=== PATIENT | male | born 1950 | race Caucasian/White ===

== ENCOUNTER 2022-04-28 08:28 | Day surgery (SDC) | payer OTHER, SELFPAY ==
[2022-04-28 08:45] VITALS: BP 133/83; PULSE 51; RESP 20; TEMP 36.3; O2SAT 99
[2022-04-28] MEDS: Tropicam./Phenyleph. (1/2.5%) 5 ML BTL OS ×3 (09:08→09:18)
[2022-04-28 09:14] VITALS: BMI 23.8
--- NOTE | 2022-04-28 09:14 | ANES.PREOP_ITS ---
General Info Date of Service Date Performed: 04/28/22 Height: 5 ft 8 in Weight: 71.3 kg Body Mass Index (BMI): 23.8 Surgical Procedure: Operation Date: 04/28/22 11:40 Proposed Procedure Side Surgeon p Cataract Extraction with IOL Implant Left Jalen Salcido MD Meds Allergies and Home Medications Allergies Allergy/AdvReac Type Severity Reaction Status Date / Time No Known Allergies Allergy Unverified 04/28/22 09:00 Home Medication Medication Instructions Recorded brimonidine 0.2 %-timolol 0.5 % 1 drp BID 04/25/22 eye drops (Combigan) latanoprost 0.005 % eye drops 1 drp ophthalmic (eye) DAILY 04/25/22 lisinopril 10 mg tablet 1 tab PO DAILY 04/25/22 multivitamin 1 tab PO DAILY 04/25/22 simvastatin 20 mg tablet 1 tab PO HS 04/25/22 tamsulosin 0.4 mg capsule 1 cap PO DAILY 04/25/22 terazosin 2 mg capsule 1 cap PO HS 04/25/22 Current Visit Medications: Current Medications Generic Name Dose Route Start Last Admin Trade Name Freq PRN Reason Stop Dose Admin Acetaminophen 1,000 mg 04/28/22 06:00 Acetaminophen 500 Mg Tab PO Q4H PRN PRN Miscellaneous Medication 0 ml 04/28/22 06:00 Prednisolone 1%, Moxifloxacin 0.5%, Nepafenac 0.1% 5ml Btl OS DIRECTED [facility] Miscellaneous Medication 0 ml 04/28/22 06:00 Tropicam./Phenyleph. (1/2.5%) 5 Ml Btl OS DIRECTED GLENNY Tetracaine HCl 0 ml 04/28/22 06:00 Tetracaine 0.5% 4 Ml Btl OS DIRECTED [facility] PFSH Active Problems Active Problems: Problem Status Onset Code Cortical cataract of left eye H26.9 Nuclear sclerotic cataract of left eye H25.12 Medical History Medical History Blind right eye History of colon polyps History of hypertension History of prediabetes History of renal stone Hx of endogenous hypertriglyceridemia Hx of hyperlipidemia Hx of open-angle glaucoma bilateral Smoking hx Surgical History Surgical History History of glaucoma tube shunt procedure Hx of umbilical hernia repair child Tobacco Smoking/Tobacco Use Status: Current every day Tobacco Type: cigarettes Alcohol Alcohol Intake: never Substance Use Substance use: Never Substance use type: does not use Vital Signs and Lab Results Vital Signs Most Recent Vital Signs in EMR: Most Recent Vital Signs Temp Pulse Resp BP Pulse Ox 36.3 C L 51 L 20 133/83 99 04/28/22 08:45 04/28/22 08:45 04/28/22 08:45 04/28/22 08:45 04/28/22 08:45 Lab Results Blood Type / Crossmatch: No Data to Display Complete Blood Count: No Data to Display Complete Metabolic Panel: No Data to Display Liver Function Panel: No Data to Display Coagulation Panel: No Data to Display Cardiac Panel: No Data to Display Arterial Blood Gas: No Data to Display Venous Blood Gas: No Data to Display Pancreas Panel: No Data to Display Thyroid Panel: No Data to Display Infectious Disease: No Data to Display Blood Cultures: No Data to Display Toxicology Panel: No Data to Display Anesthesia Assessment and Plan Anesthesia History Personal History: No History of Anesthesia Complications Family History: No Family History of Anesthesia Complications Exercise Tolerance Exercise Tolerance: Metabolic Equivalents>4 Cardiac & Pulmonary Exam Cardiac Exam: Normal S1/S2 Heart Sounds Pulmonary Exam: Clear Bilateral Breath Sounds Implantable Cardiac Device Does patient have a Pacemaker or an ICD?: No Airway Exam Known Difficult Airway: No Mallampati Class: 1 Mouth Opening: Normal (> 3cm) Thyromental Distance: Greater than 3 cm Neck Range of Motion: Full ROM Neck Circumference: Normal Teeth Condition: Normal Dentition ASA Classification ASA Score: ASA 2 Emergency Case?: No NPO Status NPO Status: NPO Clears >2 hours, Solids >8 hours Anesthesia Plan Resuscitation Status: Full Code Anesthesia Technique: General Anesthesia Airway Planned: Natural Airway Monitors Used: Standard Monitors
[2022-04-28] MEDS: Tetracaine 0.5% 4 ML BTL OS (10:19)
[2022-04-28] MEDS: Lidocaine 2% Jelly 6 ML SYR (10:20)
[2022-04-28] MEDS: Balanced Salt Soln.-PLUS 500 ML BAG (10:25)
[2022-04-28] MEDS: Duovisc Viscoelastic System EACH 1 EACH (10:26)
[2022-04-28] MEDS: Povidone-Iodine Ophth 30 ML BTL (10:28)
--- NOTE | 2022-04-28 10:42 | W.PM.DSUDISC ---
Date of service: 04/28/22 Time of Service: 10:42 Discharge Plan Disposition Patient Disposition: HOME Condition: Good Discharge Details Attending Provider: Jalen Salcido Primary Care Provider: Israel Garrison Home Meds and New Rx's Prescriptions: No Action multivitamin Tablet 1 tab PO DAILY latanoprost 0.005 % drops 1 drp ophthalmic (eye) DAILY Rx Instructions: ou terazosin 2 mg capsule 1 cap PO HS tamsulosin 0.4 mg capsule 1 cap PO DAILY simvastatin 20 mg tablet 1 tab PO HS lisinopril 10 mg tablet 1 tab PO DAILY brimonidine-timolol [Combigan] 0.2-0.5 % drops 1 drp BID Discharge Instructions Stand Alone Forms: Post-op Topical Cataract, Yazmin Akers (DSU) Discharge Orders Discharge Orders: Discharge Order (Routine); Ordered 04/28/22 Ordered By: Jalen Salcido DS: Diagnosis Discharge Diagnosis (1) Cortical cataract of left eye: Status: Resolved (2) Nuclear sclerotic cataract of left eye: Status: Resolved
[2022-04-28 10:43] VITALS: BP 130/70; PULSE 52; RESP 16; TEMP 36; O2SAT 100
--- NOTE | 2022-04-28 10:43 | ROE_ITS ---
Date of service: 04/28/22 Time of Service: 10:43 Operative Note Operative Note DATE OF PROCEDURE: 04/28/22 PRE-OP DIAGNOSIS: Nuclear/cortical cataract, left eye POST-OP DIAGNOSIS: same PROCEDURE: Cataract extraction using phacoemulsification with intraocular lens implant, left eye SURGEON: Jalen Salcido ANESTHESIA TYPE: Local By Surgeon and MAC Refer to Anesthesia Record PATHOLOGY: none sent COMPLICATIONS: None Patient was transported to: same day Patient's condition: stable Implants: Val[employer] / [employer] Tecnis [id number] Indications: Progressive decreased vision due to cataract, left eye Procedure Description: CATARACT SURGERY OPERATIVE REPORT PREOPERATIVE DIAGNOSIS: 1. Nuclear/cortical cataract, left eye POSTOPERATIVE DIAGNOSIS: Same OPERATION: 1. Cataract extraction using phacoemulsification with posterior chamber intraocular lens implant, left eye. IOL: IOL Deputy [employer]/Model: [employer] Valer[employer] / [employer] Tecnis [id number] IOL Power: + 18.0 diopters IOL Serial Number: [id number] Optic Diameter: 6.0 mm Haptic/Overall Diameter: 13.0 mm PHACO INFO: LmBook[employer]Tableon Vision System with OZil and Active [employer]uidics Cumulative Dispersed Energy (CDE): 10.85 seconds SURGEON: Jalen Salcido MD, JON ANESTHESIA: Monitored A [facility] (MAC), with local sub-tenon's anesthetic infiltration COMPLICATIONS: None SPECIMENS: None INDICATIONS FOR PROCEDURE: Patient is a 71-year-old gentleman with history of diminished visual acuity in his left eye secondary to the development of nuclear and cortical cataract. He is blind in his right eye due to advanced glaucoma. The option of cataract kavita mary in his left eye was offered to the patient and he wished to proceed. PROCEDURE: The correct surgical eye was identified and marked as the left eye and the pupil was dilated in the preoperative area using mydriatics and cycloplegics. The dilated pupil size was 6.5 mm. The patient elected to proceed without oral sedation. The patient was brought to the operating room w here cardiopulmonary monitoring was instituted and surgical time-out was performed, confirming the correct operative eye and IOL power. Topical anesthesia was administered and ophthalmic povidone-iodine 5% was instilled into the conjunctival fornices. Lidocaine gel was applied to the cornea and the elena-ocular area was prepped with Betadine 10% solution and draped in the usual sterile fashion for intraocular surgery, including an aperture drape. A Tegaderm transparent film dressing was cut in half and used to cover the lashes and lid margins. Care was taken to sequester the lashes and lid margins under the Tegaderm dressing. A lid speculum was placed between the lids of the operative eye and the Lm [employer] Revalia operating microscope was maneuvered into position. Marsha scissors were then used to make a conjunctival buttonhole approximately 6mm posterior to the limbus in the inferonasal quadrant. Blunt dissection was carried out to expose bare sclera, and a blunt-tipped sub-tenon?s anesthesia cannula was introduced and passed posteriorly along the globe where non- preserved plain lidocaine was injected into posterior sub-Tenon?s space. A sideport knife was used to make a paracentesis port superiorly/superiortemporally. Intraocular phenylephrine/lidocaine was injected int the anterior chamber.. The anterior chamber was filled with viscoelastic. A keratome knife was used to construct a 2-plane near-clear corneal tunnel extending 2.0mm into clear cornea temporally. A flap was raised on the anterior capsule and capsulorhexis forceps were used to complete a continuous curvilinear capsulorhexis of 5.0 mm. Balanced salt solution was then used to perform cortical cleaving hydrodissection and nuclear hydrodelineation until the lens could be freely rotated within the capsular bag. The lens nucleus was then disassembled and removed within the capsular bag and iris plane using phacoemulsification. Residual cortical material was removed using the 45-degree angled silicone I/A tip with 0.3mm port. The posterior capsule was carefully polished to remove as much residual lens epithelial cells as safely possible. The capsular bag was then inflated and the anterior chamber deepened with viscoelastic. The lens implant described above was inserted into the capsular bag using the BARBY [place] Injector. A Kuglen hook was used to dial the IOL into position. Residual viscoelastic was then removed first from posterior to the IOL, then from the anterior chamber using the I/A handpiece. The lens implant was noted to center nicely within the capsular bag. The incisions were stromally hydrated, and the anterior chamber was reformed using BSS. Then 0.5cc of moxifloxacin 1.0mg/ml were injected into the capsular bag and anterior chamber. The incisions were checked with a Weck spear and found to be secure. Several drops of ophthalmic povidone-iodine 5% were then applied to the eye followed by two drops of Imprimis combination prednisolone/moxifloxacin/nepafenac solution. The drapes were removed and a clear plastic protective eye shield was placed over the eye. The patient was then returned to Same Day Surgery in stable condition.
--- NOTE | 2022-04-28 11:13 | W.ANESPOSTOP ---
Postoperative Evaluation Date, Time and Location Date Performed: 04/28/22 Time Performed: 10:50 Patient Location: Day Surgery Unit Vital Signs Most Recent Imported Vital Signs: Most Recent Vital Signs Temp Pulse Resp BP Pulse Ox 36 C L 52 L 16 130/70 100 04/28/22 10:43 04/28/22 10:43 04/28/22 10:43 04/28/22 10:43 04/28/22 10:43 Pain Score Most Recent Pain Score: Most Recent Pain Score Pain Level 0 04/28/22 10:43 Assessment Mental Status: Awake (Alert & Oriented to Patient Baseline) Airway and Respiratory Function: Patent airway with normal (patient baseline) respiratory exam Cardiovascular Function: Hemodynamically Stable Hydration Status: Adequately Hydrated Nausea & Vomiting: No Nausea or Vomiting Pain: Pt. Denies Any Pain Peripheral Nerve Block: Patient did not receive a nerve block
== END 2022-04-28 11:05 | disposition home or self-care (01) ==
LOC: SUR 08:29
PROVIDERS: PCP Family Medicine; Visit Provider Ophthalmology
PROC: (CPT 66984; principal; 2022-04-28 11:30)
DX: H25.12 Age-related nuclear cataract, left eye (principal)
CPT/HCPCS: 66984; V2632